=== PATIENT | male | born 1955 | race Caucasian/White ===

== ENCOUNTER 2019-08-03 08:24 | Emergency (ER) | payer SELFPAY ==
[~2019-08-03] VITALS: Ht 175.3 cm; Wt 77.1 kg
--- NOTE | 2019-08-03 08:32 | NUR ---
PT AMB W/O ASST
[2019-08-03 08:33] VITALS: BP 165/104
--- NOTE | 2019-08-03 08:33 | NUR ---
63 Y/O M C/C CHEST PAIN X2 DAYS, PAIN 6/10 PRESSURE, STERNUM AREA NON RADIATING, INTERMITTENT PAIN. PT RECEIVED ADVIL YESTERDAY BY FAMILY MEMBER WITH NO RELIEF. PT NKA. HX HTN. RX AMOLODOPINE,ASA,PLAVIX. DENIES N/V/D. SIDE RAIL X1. FAMILY AT BEDSIDE. PRIMARY LANGUAGE [place].
--- NOTE | 2019-08-03 08:44 | NUR ---
ERMD AT BEDSIDE
[2019-08-03] MEDS ORDERED: ASPIRIN 325 MG TAB PO ONE (08:50)
--- NOTE | 2019-08-03 08:53 | NUR ---
XRAY AT BEDSIDE
[2019-08-03 09:26] LABS: BASOPHILS # (AUTO) 0.1 K/uL (0.00-0.22); BASOPHILS % (AUTO) 1.3 % (0.0-2.0); EOSINOPHILS # (AUTO) 0.2 K/uL (0-0.4); EOSINOPHILS % (AUTO) 3.8 % (0.0-4.0); HEMATOCRIT 41.7 % (36-52); HEMOGLOBIN 14.3 g/dL (12.0-18.0); LYMPHOCYTES # (AUTO) 1.9 K/uL (2.0-11.5); LYMPHOCYTES % (AUTO) 28.9 % (20.5-51.1); MEAN CORPUSCULAR HEMOGLOBIN 29 pg (27-31); MEAN CORPUSCULAR HGB CONC 34 g/dL (33-37); MEAN CORPUSCULAR VOLUME 84.4 fL (80-94); MONOCYTES # (AUTO) 0.5 K/uL (0.8-1.0); MONOCYTES % (AUTO) 7.2 % (1.7-9.3); NEUTROPHILS # (AUTO) 3.9 K/uL (1.8-7.7); NEUTROPHILS % (AUTO) 58.8 % (42.2-75.2); PLATELET COUNT (AUTO) 198 K/uL (140-450); RED BLOOD CELL COUNT(AUTO) 4.93 MIL/uL (4.20-6.10); RED CELL DISTRIBUTION WIDTH 13.4 % (11.6-13.7); WHITE BLOOD COUNT (AUTO) 6.6 K/uL (4.8-10.8)
[2019-08-03 09:44] LABS: ALBUMIN 3.4 g/dL (3.4-5.0); ANION GAP 9.5 (8-16); CARBON DIOXIDE 30.7 mmol/L (21-32); CREATININE 0.9 mg/dL (0.6-1.3); POTASSIUM 4.2 mmol/L (3.5-5.1); TOTAL BILIRUBIN 0.9 mg/dL (0.0-1.0)
--- NOTE | 2019-08-03 10:02 | NUR ---
PT AMBULATED TO RESTROOM
[2019-08-03] MEDS ORDERED: LIDOCAINE VISCOUS 2% 20 ML UDC PO ONE (10:05)
[2019-08-03] MEDS ORDERED: ALUMINUM HYD/MAG/SIMETHICONE 30 ML UDC PO ONE (10:05)
--- NOTE | 2019-08-03 10:51 | NUR ---
PT AMBULATED PER ERMD REQUEST. PT REPORTS NO CHEST PAIN WHILE WALKING. ERMD NOTIFIED.
[2019-08-03 13:24] VITALS: BP 138/67
--- NOTE | 2019-08-03 13:24 | NUR ---
Patient discharged with v/s stable. Written and verbal after care instructions given and explained. Patient alert, oriented and verbalized understanding of instructions. Ambulatory with steady gait. All questions addressed prior to discharge. ID band removed. Patient advised to follow up with PMD. Rx of AMLODOPINE,PEPCID,MAALOX given. Patient educated on indication of medication including possible reaction and side effects. Opportunity to ask questions provided and answered.
== END 2019-08-03 13:24 | disposition home or self-care (01) ==
LOC: MED 08:24
DX: R07.89 Other chest pain (principal); R06.02 Shortness of breath; I10 Essential (primary) hypertension; R11.0 Nausea
CPT/HCPCS: 36415; 71045; 80053; 83880; 84484; 85025; 85379; 93005; 99285; Q0092